=== PATIENT | male | born 1965 | race Caucasian/White ===

== ENCOUNTER → 2017-06-16 | Outpatient (CLI) | payer BC | END | disposition home or self-care (01) | LOC: CDC 14:09 | DX: K42.9 Umbilical hernia without obstruction or gangrene (principal) | CPT/HCPCS: 93000 ==

== ENCOUNTER 2017-07-05 05:36 | Day surgery (SDC) | payer BC ==
[~2017-07-05] VITALS: Ht 182.9 cm; Wt 87.3 kg
[~2017-07-05 05:36] MED LIST: CLARITIN10 M3 PO; ZANTAC150 MG PO
[2017-07-05 06:56] VITALS: BP 164/87
[2017-07-05] MEDS ORDERED: NORCO 5/3251 TABLET PO (08:16)
[2017-07-05 11:10] VITALS: BP 131/83
[2017-07-05 12:15] VITALS: BP 123/70
[2017-07-05 14:26] VITALS: BP 141/86
[2017-07-05 17:01] VITALS: BP 134/87
== END 2017-07-05 16:45 | disposition home or self-care (01) ==
LOC: SDC 05:36
PROC: 0WUF4JZ Supplement Abdominal Wall with Synthetic Substitute, Percutaneous Endoscopic Approach (ICD-10-PCS; principal; 2017-07-05)
DX: K42.9 Umbilical hernia without obstruction or gangrene (principal); K21.9 Gastro-esophageal reflux disease without esophagitis
CPT/HCPCS: C1781; J0690; J1100; J1170; J1885; J2250; J2405; J2710; J3010